=== PATIENT | male | born 1980 | race Two or more races ===

== ENCOUNTER 2021-08-02 17:32 | Emergency (ER) | payer SELFPAY ==
[~2021-08-02] VITALS: Ht 177.8 cm; Wt 86.2 kg
[2021-08-02] MEDS ORDERED: HYDROcodone-ACET 10/325MG TAB PO ONE (20:30)
[2021-08-02 20:38] VITALS: BP 164/99
== END 2021-08-02 21:15 | disposition home or self-care (01) ==
LOC: ER 17:36
DX: S62.354A Nondisplaced fracture of shaft of fourth metacarpal bone, right hand, initial encounter for closed fracture (principal); W01.0XXA Fall on same level from slipping, tripping and stumbling without subsequent striking against object, initial encounter; Y93.89 Activity, other specified; Y92.89 Other specified places as the place of occurrence of the external cause; Y99.8 Other external cause status
CPT/HCPCS: 29125; 73130

== ENCOUNTER 2024-03-01 17:13 | Emergency (ER) | payer MEDICAID ==
[~2024-03-01] VITALS: Ht 177.8 cm; Wt 82.3 kg
[2024-03-01 17:13] VITALS: BP 158/113; PULSE 108; RESP 16; O2SAT 99
[2024-03-01 18:38] LABS: Urine Bacteria FEW /hpf (None Seen); Urine Blood Negative /uL (Negative); Urine Clarity Clear (Clear); Urine Color Yellow (Yellow); Urine Hyaline Cast FEW /lpf (0 - 2); Urine Mucus FEW (None Seen); Urine Protein, UAD 1+ (Negative); Urine Specific Gravity 1.035 (1.001-1.035); Urine Urobilinogen Normal (Negative); Urine WBC 1 /hpf (0 - 3)
[2024-03-01 20:34] LABS: Basophils # (auto) 0.1 10 ^3/uL (0-0.2); Basophils % (auto) 0.5 % (0.0-2.0); Eosinophils # (auto) 0.1 10 ^3/uL (0-0.8); Eosinophils % (auto) 0.6 % (0.0-7.0); Hematocrit 44.2 % (41.0-53.0); Hemoglobin 15.1 g/dL (13.5-17.5); Lymphocytes # (auto) 2.9 10 ^3/uL (0.4-5.4); Lymphocytes % (auto) 24.6 % (10.0-50.0); Mean Corpuscular Hemoglobin 29.5 pg (28.0-32.0); Mean Corpuscular Hgb Conc. 34.3 g/dL (32.0-36.0); Monocytes # (auto) 1.1 10 ^3/uL (0-1.3); Monocytes % (auto) 9.1 % (0.0-12.0); Neutrophils # (auto) 7.7 10 ^3/uL (1.6-8.6); Neutrophils % (auto) 65.2 % (37.0-80.0); Nucleated Red Blood Cells % 0.1 %; Red Blood Cells 5.14 10^6/uL (4.5-5.90); Red Cell Distribution Width 13.8 % (11.8-14.3); White Blood Cell 11.8 10^3/uL (4.4-10.8)
[2024-03-01 20:45] LABS: Chloride 105 mmol/L (98-107); Potassium 3.8 mmol/L (3.5-5.1); Sodium 141 mmol/L (136-145)
[2024-03-01 20:46] LABS: Anion Gap 8 (5-15); Carbon Dioxide 28 mmol/L (20-30)
[2024-03-01 20:47] LABS: Calcium 9.7 mg/dL (8.5-10.1)
[2024-03-01 20:51] LABS: BUN/Creatinine Ratio 15.6 (10.0-20.0); Blood Urea Nitrogen 15 mg/dL (9-23); Glucose 120 mg/dL (74-106)
== END 2024-03-01 21:53 | disposition home or self-care (01) ==
LOC: ER 17:13
DX: F15.90 Other stimulant use, unspecified, uncomplicated (principal); R10.84 Generalized abdominal pain
CPT/HCPCS: 36415; 74176; 80048; 81001; 85025